=== PATIENT | male | born 1975 | race Caucasian/White ===

== ENCOUNTER 2017-07-27 15:23 | Emergency (ER) | payer MEDICAID ==
--- NOTE | 2017-07-27 15:36 | EDM.PDOC ---
ED HPI GENERAL MEDICAL PROBLEM - General Chief Complaint: Headache Stated Complaint: H/A NAUSEA Time Seen by Provider: 07/27/17 15:36 Source of Information: Reports: Patient History Limitations: Reports: No Limitations - History of Present Illness INITIAL COMMENTS - FREE TEXT/NARRATIVE: 42 yo gentleman with past medical history significant for Obesity, HTN, HLD who presents to the ER with 2 day h/o worsening headache.Indicates that headache started mainly in the frontal area and over the eyelids and got worse. Rates headache as 8/10. Today he started feeling nauseeous and vomited x 1. Sister noted that he has been a bit Lethargic and was sleeping most of the day. Feels a bit dizzy. No fever, chills, Denied any neck pain. Presented to the ER on account of worsening of symptoms Onset: Sudden Duration: Day(s): (on going for the past 2 days), Getting Worse Location: Reports: Head Quality: Reports: Ache Severity: Severe Worsens with: Reports: None Associated Symptoms: Reports: Nausea/Vomiting - Related Data Allergies Allergy/AdvReac Type Severity Reaction Status Date / Time cephalexin Allergy Swelling Verified 07/27/17 16:34 Home Meds: Home Meds ClomiPRAMINE [ClomiPRAMINE HCl] 50 mg PO DAILY 07/27/17 [History] Lisinopril/Hydrochlorothiazide [Lisinopril-Hctz 20-12.5 mg Tab] 1 tab PO DAILY 07/27/17 [History] OLANZapine [Olanzapine] 15 mg PO BEDTIME 07/27/17 [History] Rosuvastatin Calcium [Rosuvastatin Calcium] 10 mg PO DAILY 07/27/17 [History] traMADol [Ultram] 50 mg PO Q6H PRN #20 tab 07/27/17 [Rx] ED ROS GENERAL - Review of Systems Review Of Systems: ROS reveals no pertinent complaints other than HPI. - Physical Exam Exam: See Below Exam Limited By: No Limitations Eye Exam: Bilateral Eye: PERRL Ears: Normal External Exam, Normal Canal, Hearing Grossly Normal, Normal TMs Nose: Normal Inspection, Normal Mucosa Throat/Mouth: Normal Inspection, Normal Lips, Normal Teeth Head Exam: Atraumatic, Normocephalic Neck: Normal Inspection, Supple, Non-Tender, Full Range of Motion Respiratory/Chest: No Respiratory Distress, Lungs Clear, Normal Breath Sounds Cardiovascular: Normal Peripheral Pulses, Regular Rate, Rhythm, No Edema GI/Abdominal: Normal Bowel Sounds, Soft, Non-Tender, No Organomegaly Neuro Exam (Abbreviated): Alert, Oriented, CN II-XII Intact, Normal Cognition, Normal Gait, Normal Reflexes Back Exam: Normal Inspection, Full Range of Motion Extremities: Normal Inspection, Normal Range of Motion, Non-Tender, No Pedal Edema, Normal Capillary Refill Psychiatric: Normal Affect, Normal Mood Skin Exam: Warm Course - Orders/Labs/Meds Orders: Active Orders 24 hr Category Date Time Status Head wo Cont [CT] Stat Exams 07/27/17 15:50 Taken Sodium Chloride 0.9% [Normal Saline] 1,000 ml Med 07/27/17 15:51 Active IV .BOLUS Medication Orders Sodium Chloride (Normal Saline) 1,000 mls @ 1,000 mls/hr IV .BOLUS ONE Stop: 07/27/17 16:50 Meds: Medications Generic Name Dose Route Start Last Admin Trade Name Freq PRN Reason Stop Dose Admin Sodium Chloride 1,000 mls @ 1,000 mls/hr 07/27/17 15:51 Normal Saline IV 07/27/17 16:50 .BOLUS ONE Discontinued Medications Generic Name Dose Route Start Last Admin Trade Name Freq PRN Reason Stop Dose Admin Diphenhydramine HCl 25 mg 07/27/17 15:53 Benadryl IVPUSH 07/27/17 15:54 ONETIME ONE Ketorolac Tromethamine 30 mg 07/27/17 15:52 Toradol IVPUSH 07/27/17 15:53 ONETIME ONE Metoclopramide HCl 10 mg 07/27/17 15:52 Reglan IVPUSH 07/27/17 15:53 ONETIME ONE Departure - Departure Time of Disposition: 16:45 Disposition: Home, Self-Care 01 Condition: Good Clinical Impression: Tension-type headache - Discharge Information Prescriptions: traMADol [Ultram] 50 mg PO Q6H PRN #20 tab PRN Reason: Headache Instructions: Tension Headache Referrals: Gianfranco Cruz MD [Primary Care Provider] - Forms: ED Department Discharge Additional Instructions: Follow with PCP in 2-3 days. Stay hydrated Tramadol alternating with Ibuprofen for headache Return if symptoms worsen Call your Physician or Return to Emergency Department if: * Your condition worsens in any way. * You develop fever greater than 100.4. * You have vomitting that does not stop with medications. * You have pain that is not controlled with medications. - My Orders Last 24 Hours: My Active Orders 07/27/17 15:50 Head wo Cont [CT] Stat 07/27/17 15:51 Sodium Chloride 0.9% [Normal Saline] 1,000 ml IV .BOLUS - Assessment/Plan Last 24 Hours: My Active Orders 07/27/17 15:50 Head wo Cont [CT] Stat 07/27/17 15:51 Sodium Chloride 0.9% [Normal Saline] 1,000 ml IV .BOLUS
[2017-07-27] MEDS ORDERED: Sodium Chloride 0.9% 1,000 ML IV ONE (15:51)
[2017-07-27] MEDS ORDERED: Metoclopramide 10 MG/2 ML SDV IVPUSH ONE (15:52)
[2017-07-27] MEDS ORDERED: Ketorolac 30 MG/ML SDV IVPUSH ONE (15:52)
[2017-07-27] MEDS ORDERED: diphenhydrAMINE 50 MG/ML SDV IVPUSH ONE (15:53)
[2017-07-27 18:11] VITALS: BP 128/84
== END 2017-07-27 17:30 | disposition home or self-care (01) ==
LOC: FB.ED 15:23
DX: G44.209 Tension-type headache, unspecified, not intractable (principal); Z88.8 Allergy status to other drugs, medicaments and biological substances; Z79.899 Other long term (current) drug therapy
CPT/HCPCS: 70450; 96361; 96374; 96375; 99284; J1200; J1885; J2765; J7040